=== PATIENT | female | born 1950 | race Caucasian/White ===

== ENCOUNTER 2024-04-29 12:09 | Outpatient (AMB) | payer MEDICARE, SELFPAY ==
--- NOTE | 2024-04-29 12:11 | HO.NEPHOV_ITS ---
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 In the past she had questionable asymmetric renal size and was thought to have renal artery stenosis. Initial ultrasound done in 2020 showed atrophy of the right kidney but had undergone another ultrasound in endovascular practice with Dr. Anita Tobin who thought the the small size of the right kidney was an over read. She continues to have normal blood pressure on current medications. She is tolerating angiotensin receptor linda well. She has dyslipidemia and takes Lipitor without any side effects. She does not have any chest pain, shortness of breath, proximal nocturnal dyspnea, orthopnea, pedal edema or urinary symptoms. She does not take any nonsteroidal anti-inflammatories and maintain good hydration. She feels well. [facility] Medical History (Updated 04/29/24 @ 12:45 by Tutu Felix MD) Renal artery stenosis Family History Mother Heart disease Social History (Updated 04/29/24 @ 12:16 by Yudith Goldsmith MA) Alcohol intake: never Patient Tobacco Use Status: Never used Tobacco Review of Systems Const All systems reviewed & are unremarkable except as noted in HPI and below Physical Exam Vital Signs: Last Vital Signs Pulse 55 04/29/24 12:13 BP 140/80 H 04/29/24 12:13 Pulse Ox 97 04/29/24 12:13 Oxygen Delivery Method Room Air 04/29/24 12:13 BMI result Body Mass Index 18.8 Const General: comfortable and no acute distress Orientation/consciousness: patient oriented x3 HEENT Head: Yes normocephalic Mouth: Normal oral and palatal mucosa present Eyes EOM: EOMs intact bilaterally Neck Neck: Yes supple Resp Auscultation: clear to auscultation bilaterally Cardio Jugular venous distension: no JVD Rate: regular rate GI Palpation (GI): Soft to palpation Auscultation: normal bowel sounds General: Yes no CVA tenderness Back/Spine/Pelvis Back: no CVA tenderness Skin General skin exam: no rashes or lesions noted Neuro General: patient oriented x3 and moves all extremities Extrem General: Yes no pedal edema Results Reviewed Nephrology Results: No Data to Display Assessment & Plan Assessment & Plan (1) Renal artery stenosis: Code(s): I70.1 - Atherosclerosis of renal artery Category: Medical (2) Hypertension: Code(s): I10 - Essential (primary) hypertension Category: Medical Qualifiers: Hypertension type: renovascular hypertension Qualified Code(s): I15.0 - Renovascular hypertension Plan Arminda has longstanding hypertension which is well controlled on current medication regimen. She is tolerating angiotensin receptor linda well.In the past she had questionable asymmetric renal size and was thought to have renal artery stenosis. Initial ultrasound done in 2020 showed atrophy of the right kidney but had undergone another ultrasound in endovascular practice with Dr. Anita Tobin who thought the the small size of the right kidney was an over read. I ordered a follow-up renal ultrasound to look at the kidney size. Her blood pressure is at goal. Her renal functions have been stable. Given her last blood work was done a year ago I repeated the same. She has dyslipidemia and is on statins with a stable lipid profile. I did not make any medication changes today. She maintains good hydration and avoid nonsteroidal anti-inflammatories. Answered all questions. Orders: Orders Electrolytes Today I70.1 - Atherosclerosis of renal artery Calcium Today I70.1 - Atherosclerosis of renal artery US renal BI Today I70.1 - Atherosclerosis of renal artery Creatinine Today I70.1 - Atherosclerosis of renal artery Blood Urea Nitrogen Today I70.1 - Atherosclerosis of renal artery Coding Level of Care Code Est Pt Level 4 (81812) Diagnoses Renal artery stenosis I70.1 Renovascular hypertension I15.0 Hypertension type: renovascular hypertension
[2024-04-29 12:13] VITALS: BP 120/80; PULSE 55; O2SAT 97; BMI 18.8
== END 2024-04-29 12:41 | disposition home or self-care (01) ==
PROVIDERS: PCP Family Medicine; Visit Provider Internal Medicine Nephrology
DX: I70.1 Atherosclerosis of renal artery (principal); I15.0 Renovascular hypertension
CPT/HCPCS: 99214

== ENCOUNTER → 2024-04-29 12:09 | Outpatient (BNVA) | payer MEDICARE, SELFPAY | PROVIDERS: PCP Family Medicine; Visit Provider Internal Medicine Nephrology | DX: I70.1 Atherosclerosis of renal artery (principal); I15.0 Renovascular hypertension | CPT/HCPCS: 99212 ==

== ENCOUNTER 2024-05-28 13:13 | Outpatient (REF) | payer MEDICARE, SELFPAY ==
[2024-05-28 18:54] LABS: Anion Gap 12 (12-20); Blood Urea Nitrogen 17 mg/dL (9-16); Calcium 9.4 mg/dL (8.4-10.2); Carbon Dioxide 27 mmol/L (22-29); Chloride 110 mmol/L (96-108); Estimated Glomerular Filt Rate > 60; Potassium 4.2 mmol/L (3.3-5.1); Sodium 145 mmol/L (135-145)
== END 2024-05-28 13:14 | disposition home or self-care (01) ==
LOC: HO.HKASLDS 13:13
PROVIDERS: Visit Provider Internal Medicine Nephrology
DX: I70.1 Atherosclerosis of renal artery (principal)
CPT/HCPCS: 36415; 80051; 82310; 82565; 84520

== ENCOUNTER 2024-05-29 13:37 | Outpatient (REF) | payer MEDICARE, OTHER, SELFPAY ==
--- NOTE | ~2024-05-29 | US_ITS ---
EXAMINATION: US RETROPERITONEAL LIMITED (RENAL ONLY) CLINICAL INFORMATION: Atherosclerosis of renal artery. COMPARISON: None available. TECHNIQUE: Real-time imaging of the kidneys. FINDINGS: RIGHT KIDNEY: 9.3 x 4.2 x 4.1 cm (SAG x AP x TRV). The kidney is normal in size, contour, and echogenicity. Renal cortical thickness is normal. No calculi or focal parenchymal lesions. No hydronephrosis. Dilated calyectasis, there is some fullness of the renal pelvis. LEFT KIDNEY: 10.1 x 3.1 x 4.0 cm (SAG x AP x TRV). The kidney is normal in size, contour, and echogenicity. Renal cortical thickness is normal. No calculi or focal parenchymal lesions. No hydronephrosis. Mildly dilated collecting system. No purvi hydronephrosis. US/US renal BI IMPRESSION: Mildly dilated renal collecting systems caliectasis without purvi hydronephrosis uncertain etiology. No ultrasound evidence of kidney stone or mass..
== END 2024-05-29 13:38 | disposition home or self-care (01) ==
LOC: HO.US 13:37
PROVIDERS: PCP Family Medicine; Visit Provider Internal Medicine Nephrology
DX: I70.1 Atherosclerosis of renal artery (principal)
CPT/HCPCS: 76775